=== PATIENT | female | born 1980 | race Caucasian/White ===

== ENCOUNTER 2023-09-13 15:02 | Outpatient (CLI) | payer BC, OTHER, SELFPAY | END 2023-09-13 15:03 | disposition home or self-care (01) | PROVIDERS: PCP Physician Assistant Medical; Visit Provider Physician Assistant Medical | DX: Z00.00 Encounter for general adult medical examination without abnormal findings (principal); E66.3 Overweight; Z13.6 Encounter for screening for cardiovascular disorders; Z13.29 Encounter for screening for other suspected endocrine disorder | CPT/HCPCS: 80053; 80061; 84443 ==

== ENCOUNTER 2023-12-11 14:23 | Outpatient (CLI) | payer BC, OTHER, SELFPAY ==
--- NOTE | 2023-12-11 14:40 | CRLHL7_ITS ---
For Patients: As a result of the Century Cures Act, medical imaging exams and procedure reports are released immediately into your electronic medical record. You may view this report before your referring provider. If you have questions, please contact your health care provider. BILATERAL SCREENING MAMMOGRAM WITH COMPUTER-AIDED DETECTION AND TOMOSYNTHESIS TECHNIQUE: CC and MLO views were obtained. These mammographic images have been obtained using full-field digital technique. These mammographic images were interpreted with the benefit of computer-aided detection. Breast Tomosynthesis was used in this interpretation. COMPARISON FILM: 09/12/18. FINDINGS: The breasts are heterogeneously dense, which may obscure small masses. IMPRESSION: There is no radiographic evidence for malignancy. ASSESSMENT: BI-RADS Category 1: Negative RECOMMENDATION: Routine screening mammogram in 1 year. A lay language report of this examination will be provided to the patient. James Fairchild M.D. Diagnostic Radiologist [email or web address] SP/Dictated by: James Fairchild MD @ 12/12/2023 12:44:00 PM (Electronically Signed)
== END 2023-12-11 14:24 | disposition home or self-care (01) ==
LOC: MAMMO 14:24
PROVIDERS: PCP Physician Assistant Medical; Visit Provider Physician Assistant Medical
DX: Z12.31 Encounter for screening mammogram for malignant neoplasm of breast (principal); R92.2 Inconclusive mammogram
CPT/HCPCS: 77063; 77067

== ENCOUNTER 2025-03-23 07:20 | Outpatient (CLI) | payer BC, OTHER, SELFPAY | END 2025-03-23 07:21 | disposition home or self-care (01) | PROVIDERS: PCP Physician Assistant Medical; Visit Provider Physician Assistant Medical | DX: E78.5 Hyperlipidemia, unspecified (principal); E66.3 Overweight | CPT/HCPCS: 80053; 80061; 84443 ==

== ENCOUNTER 2025-04-14 08:21 | Outpatient (CLI) | payer BC, OTHER, SELFPAY ==
--- NOTE | 2025-04-14 10:17 | P.ANES_ITS ---
Anesthesia Charges Start Date/Time Anesthesia Start Date: 04/14/25 Anesthesia Start Time: 09:15 Stop Date/Time Anesthesia Stop Date: 04/14/25 Anesthesia Stop Time: 10:16 Coding CPT Codes CPT Codes: BEN LWR INTST NDNJ NOS - 90466 ([id number]) P1 - NORMAL HEALTHY PATIENT, QX - PLANT CHIEF SVGrover W/ MED DIRECTION, QK - EMAIL PRODUCTION CONSULTANT 2-4 CNCRNT BEN PROC
--- NOTE | 2025-04-14 10:17 | W.ANESCHARGE ---
Anesthesia Charges Start Date/Time Anesthesia Start Date: 04/14/25 Anesthesia Start Time: 09:15 Stop Date/Time Anesthesia Stop Date: 04/14/25 Anesthesia Stop Time: 10:16 Coding CPT Codes CPT Codes: BEN LWR INTST NDND NOS - 98869 ([id number]) P1 - NORMAL HEALTHY PATIENT, QX - ELECTRICAL PARTS RECONDITIONER SVGrover W/ MED DIRECTION, QK - BOAT WASHER 2-4 CNCRNT BEN PROC
--- NOTE | 2025-04-14 10:19 | P.ANES_ITS ---
Anesthesia Charges Start Date/Time Anesthesia Start Date: 04/14/25 Anesthesia Start Time: 09:15 Stop Date/Time Anesthesia Stop Date: 04/14/25 Anesthesia Stop Time: 10:16 Coding CPT Codes CPT Codes: BEN LWR INTST NDOK NOS - 90127 ([id number]) P1 - NORMAL HEALTHY PATIENT, QK - IT INFRASTRUCTURE SPECIALIST 2-4 CNCRNT ANES PROC, QX - PERSONAL PROPERTY ASSESSOR SVC W/ MED DIRECTION
--- NOTE | 2025-04-14 10:19 | W.ANESCHARGE ---
Anesthesia Charges Start Date/Time Anesthesia Start Date: 04/14/25 Anesthesia Start Time: 09:15 Stop Date/Time Anesthesia Stop Date: 04/14/25 Anesthesia Stop Time: 10:16 Coding CPT Codes CPT Codes: BEN LWR INTST NDNE NOS - 61084 ([id number]) P1 - NORMAL HEALTHY PATIENT, QK - PLASTER HELPER 2-4 CNCRNT ANES PROC, QX - STATOR WINDER SVC W/ MED DIRECTION
== END 2025-04-14 08:22 | disposition home or self-care (01) ==
LOC: OP CLINIC 08:24
PROVIDERS: PCP Physician Assistant Medical; Visit Provider Surgery
DX: Z12.11 Encounter for screening for malignant neoplasm of colon (principal); Z83.718 Family history of other colon polyps; D12.3 Benign neoplasm of transverse colon; D12.5 Benign neoplasm of sigmoid colon; K64.8 Other hemorrhoids
CPT/HCPCS: 00811; 00812; 45381; 45385; 88305; J2704

== ENCOUNTER 2025-07-03 07:55 | Outpatient (CLI) | payer BC, OTHER, SELFPAY ==
--- NOTE | 2025-07-03 08:15 | CRLHL7_ITS ---
For Patients: As a result of the Century Cures Act, medical imaging exams and procedure reports are released immediately into your electronic medical record. You may view this report before your referring provider. If you have questions, please contact your health care provider. INDICATION: BILATERAL SCREENING MAMMOGRAM, ASYMPTOMATIC 44 Y/O FEMALE COMPARISON: 12/11/2023, 09/12/2018 TECHNIQUE: Digital mammogram in CC and MLO projections including computer-aided detection (CAD) and tomosynthesis. BREAST COMPOSITION: The breasts are heterogeneously dense, which may obscure small masses. FINDINGS: No suspicious findings. ASSESSMENT: BI-RADS 1 Negative RECOMMENDATION: Annual screening mammogram. A lay language report of this examination will be provided to the patient. Dictated by: James Fairchild MD @ 07/03/2025 09:26:11 (Electronically Signed)
== END 2025-07-03 07:56 | disposition home or self-care (01) ==
LOC: MAMMO 07:55
PROVIDERS: PCP Physician Assistant Medical; Visit Provider Physician Assistant Medical
DX: Z12.31 Encounter for screening mammogram for malignant neoplasm of breast (principal); R92.333 Mammographic heterogeneous density, bilateral breasts
CPT/HCPCS: 77063; 77067